=== PATIENT | male | born 1960 | race Hispanic/Latino ===

== ENCOUNTER → 2020-08-08 | Outpatient (CLI) | payer OTHER | END | disposition home or self-care (01) | LOC: OIH 10:41 | PROVIDERS: ATTEND Internal Medicine Cardiovascular Disease | DX: Z13.6 Encounter for screening for cardiovascular disorders (principal) | CPT/HCPCS: 75571 ==

== ENCOUNTER 2020-11-17 07:16 | Day surgery (SDC) | payer OTHER ==
[2020-11-11 13:12] LABS: BASOPHILS % (AUTO) 0.8 % (0.0-5.0); EOSINOPHILS % (AUTO) 1.7 % (0.0-8.0); HEMATOCRIT 45.5 % (42-54); LYMPHOCYTES % (AUTO) 24.9 % (21.0-51.0); MEAN CORPUSCULAR HEMOGLOBIN 28.9 pg (27.0-33.0); MEAN CORPUSCULAR HGB CONC 33.2 g/dL (32.0-36.0); MONOCYTES % (AUTO) 7.2 % (3.0-13.0); NEUTROPHILS % (AUTO) 65.1 % (40.0-77.0); PLATELET COUNT (AUTO) 157 K/uL (130-400); RED BLOOD CELL COUNT(AUTO) 5.23 MIL/uL (4.50-6.20); RED CELL DISTRIBUTION WIDTH 12.4 % (11.0-15.5); WHITE BLOOD COUNT (AUTO) 6.4 K/uL (4.8-10.8)
[2020-11-11 14:02] LABS: PROTHROMBIN TIME 10.9 SEC (9.6-11.6)
[2020-11-11 14:03] LABS: PARTIAL THROMBOPLASTIN TIME 27.1 SEC (26.3-35.5)
[2020-11-11 14:15] LABS: CREATININE 0.8 mg/dL (0.5-1.5); POTASSIUM 4.3 mmol/L (3.5-5.1)
[2020-11-16 08:27] VITALS: BP 135/7
[~2020-11-17] VITALS: Ht 170.2 cm; Wt 87.2 kg
[2020-11-17] VITALS (16 sets, daily range): BP systolic 124–149; BP diastolic 71–86
[~2020-11-17 07:16] MED LIST: CHOL500045 PO; MAGN250T10 PO; MULT-1285 PO; ROSU20TA31 PO; UBID400C6 PO; ZINC220T4 PO
[2020-11-17] MEDS ORDERED: LACTATED RINGERS 1000ML 1,000 ML IV ONE (07:25)
[2020-11-17] MEDS ORDERED: BACITRACIN 28.4 GM OINT TP ONE (07:56)
[2020-11-17] MEDS ORDERED: BUPIVACAINE/PF 0.25% 30ML VIAL IJ ONE (07:56)
[2020-11-17] MEDS: CEFAZOLIN SODIUM 1 GM VIAL IVP ONE ×2 (07:58→08:40)
[2020-11-17] MEDS ORDERED: LIDOCAINE PF 100MG/5ML (2%) SYRINGE 5ML ONE (07:59)
[2020-11-17] MEDS ORDERED: PROPOFOL 10 MG/ML 20ML VIAL IV ONE (07:59)
[2020-11-17] MEDS ORDERED: FENTANYL CITRATE PF 50 MCG/1 ML 2ML VIAL ONE (07:59)
[2020-11-17] MEDS ORDERED: GLYCOPYRROLATE 1 MG/5 ML SYRINGE ONE (08:51)
[2020-11-17] MEDS ORDERED: EPHEDRINE SULFATE 50 MG/ML AMPULE ONE (08:57)
[2020-11-17] MEDS ORDERED: KETOROLAC 30MG VIAL (30MG/ML) ONE (09:30)
== END 2020-11-17 11:05 | disposition home or self-care (01) ==
LOC: DAH 07:16
PROVIDERS: ATTEND Urology
DX: N43.2 Other hydrocele (principal); Z20.822 Contact with and (suspected) exposure to COVID-19; E78.5 Hyperlipidemia, unspecified; Z90.89 Acquired absence of other organs; Z98.890 Other specified postprocedural states; Z79.01 Long term (current) use of anticoagulants
CPT/HCPCS: 36415; 55040; 71045; 80048; 85025; 85610; 85730; 87635; 93005; A4215; A4221; A4222; A4223; A4600; A4606; A4663; A4930; A6260; C9803; J0690; J2001; J2704; J3010; J3490 ×3; J7030; J7120; J1885

== ENCOUNTER 2023-06-14 22:21 | Observation (INO) | payer OTHER ==
[~2023-06-14] VITALS: Ht 170.2 cm; Wt 92.3 kg
[~2023-06-14 22:21] MED LIST changes: -ROSU20TA31 PO; +ROSU20TA73 PO; -UBID400C6 PO; +UBID400C8 PO
[2023-06-14 23:00] VITALS: BP 164/94; PULSE 63; RESP 19
[2023-06-14 23:40] VITALS: O2SAT 99
[2023-06-15] MEDS: HYDRALAZINE 20MG/ML VIAL IV PRN (00:02)
[2023-06-15 01:15] VITALS: BP 140/93
[2023-06-15] MEDS ORDERED: POTASSIUM CHLORIDE 20MEQ/100ML 100 ML IV PRN (01:30)
[2023-06-15] MEDS ORDERED: MORPHINE 2 MG SYG IVP PRN (01:30)
[2023-06-15] MEDS ORDERED: HYDRALAZINE 20MG/ML VIAL IV PRN (01:30)
[2023-06-15] MEDS ORDERED: ONDANSETRON 4MG INJ IV PRN (01:30)
[2023-06-15] MEDS ORDERED: MAGNESIUM 2GM PREMIX 50ML 50 ML IV PRN (01:30)
[2023-06-15] MEDS: MORPHINE 4 MG SYG IVP PRN (01:59)
[2023-06-15 04:00] VITALS: BP 115/82; PULSE 52; RESP 18
[2023-06-15 05:11] LABS: BASOPHILS # (AUTO) 0.04 K/uL (0.00-0.20); BASOPHILS % (AUTO) 0.4 % (0.0-5.0); EOSINOPHILS # (AUTO) 0.15 K/uL (0.00-0.70); EOSINOPHILS % (AUTO) 1.7 % (0.0-8.0); HEMATOCRIT 41.3 % (42-54); IMMATURE GRANULOCYTE ABSOLUTE 0.03 K/uL (0-1); LYMPHOCYTES # (AUTO) 2.1 K/uL (1.0-4.8); LYMPHOCYTES % (AUTO) 23.5 % (21.0-51.0); MEAN CORPUSCULAR HEMOGLOBIN 29.2 pg (27.0-33.0); MEAN CORPUSCULAR HGB CONC 34.4 g/dL (32.0-36.0); MEAN CORPUSCULAR VOLUME 84.8 fL (79-99); MONOCYTES # (AUTO) 0.8 K/uL (0.1-1.0); MONOCYTES % (AUTO) 9.3 % (3.0-13.0); NEUTROPHILS # (AUTO) 5.8 K/uL (1.8-7.7); NEUTROPHILS % (AUTO) 64.8 % (40.0-77.0); PLATELET COUNT (AUTO) 166 K/uL (130-400); RED BLOOD CELL COUNT(AUTO) 4.87 MIL/uL (4.50-6.20); RED CELL DISTRIBUTION WIDTH 12.6 % (11.0-15.5); WHITE BLOOD COUNT (AUTO) 8.9 K/uL (4.8-10.8)
[2023-06-15 05:20] LABS: INR <= 0.93 (0.85-1.15); PROTHROMBIN TIME 10.8 SEC (9.6-11.6)
[2023-06-15 05:21] LABS: ALBUMIN 3.5 g/dL (3.5-5.0); BILIRUBIN,TOTAL 0.7 mg/dL (0.2-1.0); CREATININE 0.9 mg/dL (0.5-1.3); MAGNESIUM 2.1 mg/dL (1.80-2.40); PARTIAL THROMBOPLASTIN TIME 27.2 SEC (26.3-35.5); POTASSIUM 3.9 mmol/L (3.5-5.1); TOTAL PROTEIN, SERUM 6.5 g/dL (6.0-8.3)
[2023-06-15 08:00] VITALS: BP 138/65; PULSE 54; RESP 16
[2023-06-15] MEDS: FAMOTIDINE 20MG VIAL IV SCH (08:15)
[2023-06-15 08:30] VITALS: O2SAT 99
[2023-06-15 11:50] VITALS: BP 135/83; PULSE 51; RESP 16
[2023-06-15] MEDS: TETANUS/DIPHTHERIA TOXOID [ADULT] 0.5 ML VIAL IM ONE (15:09)
== END 2023-06-15 15:47 | disposition home or self-care (01) ==
LOC: 3BH 23:35
PROVIDERS: ADMIT Hospitalist; ATTEND Hospitalist
DX: S92.425A Nondisplaced fracture of distal phalanx of left great toe, initial encounter for closed fracture (principal); E78.5 Hyperlipidemia, unspecified; F17.210 Nicotine dependence, cigarettes, uncomplicated; F12.20 Cannabis dependence, uncomplicated; F14.20 Cocaine dependence, uncomplicated; F10.20 Alcohol dependence, uncomplicated; E66.9 Obesity, unspecified; M12.872 Other specific arthropathies, not elsewhere classified, left ankle and foot; Z68.31 Body mass index [BMI] 31.0-31.9, adult; W20.8XXA Other cause of strike by thrown, projected or falling object, initial encounter; Y93.89 Activity, other specified; Y92.89 Other specified places as the place of occurrence of the external cause; Y99.8 Other external cause status
CPT/HCPCS: 96374; 96376; 96375; 83735; 80053; 85025; 85610; 85730; 36415; 90714; 73660; 90471; G0378 ×2; J3490; J0360; J2270 ×2